=== PATIENT | male | born 1985 | race Caucasian/White ===

== ENCOUNTER 2018-02-12 23:45 | Emergency (ER) | payer OTHER ==
--- NOTE | 2018-02-13 00:01 | Emergency Department Record ---
History of Present Illness - General Chief complaint: Pain Stated complaint: NECK/SHOULDER PAIN Time Seen by Provider: 02/12/18 23:55 Source: Patient Mode of Arrival: Ambulatory Limitations: No limitations - History of Present Illness Initial comments: 32 yo male presents to ED for evaluation of left shoulder and neck pain that began 2 days ago. Patient reports waking up with pain to the affected area, but proceeded to go outdoors and cut wood throughout the day which improved his pain symptoms. Patient reports the area was more painful the following morning (yesterday). Patient denies numbness, tingling, or weakness to the left upper extremity, and denies chest pain or difficulty in breathing. Patient denies health problems at his baseline. MD Complaint: Neck Pain Onset/Timin -: Days(s) Location: Left History of Same: Yes Radiation: Proximal Severity scale (1-10): 4 Quality: Aching Consistency: Constant Improves with: Movement Worsens with: Rest Associated Symptoms: Denies other symptoms - Related Data Previous Rx's Medication Instructions Recorded Diazepam [Valium] 5 mg PO Q8H PRN #9 tab 02/13/18 Allergies Allergy/AdvReac Type Severity Reaction Status Date / Time No Known Drug Allergies Allergy Verified 02/12/18 23:56 Travel Screening - Travel/Exposure Within Last 30 Days Have you traveled within the last 30 days?: No - Travel Symptoms Symptom Screening: None Review of Systems Constitutional: Denies: Chills, Fever, Malaise, Night sweats Eyes: Denies: Eye discharge, Eye pain ENT: Denies: Congestion, Ear pain, Epistaxis Respiratory: Denies: Cough, Dyspnea Cardiovascular: Denies: Chest pain, Dyspnea on exertion Endocrine: Denies: Fatigue, Heat or cold intolerance Gastrointestinal: Denies: Abdominal pain, Nausea, Vomiting Genitourinary: Denies: Incontinence, Retention Musculoskeletal: Reports: Arthralgia. Denies: Back pain, Gout, Joint swelling Skin: Denies: Bruising, Change in color, Change in hair/nails Neurological: Denies: Abnormal gait, Confusion, Headache, Seizure Psychiatric: Denies: Anxiety Hematological/Lymphatic: Denies: Anemia, Blood Clots Physical Exam - General General Appearance: Alert, Oriented x3, Cooperative, Mild distress, Anxious Limitations: No limitations - Head Head exam: Atraumatic, Normocephalic, Normal inspection Head exam detail: negative: Abrasion, Contusion, Hughes's sign, General tenderness, Hematoma, Laceration - Eye Eye exam: Normal appearance. negative: Conjunctival injection, Periorbital swelling, Periorbital tenderness, Scleral icterus - ENT Ear exam: negative: Auricular hematoma, Auricular trauma Nasal Exam: negative: Active bleeding, Discharge, Dried blood, Foreign body Mouth exam: negative: Drooling, Laceration, Tongue elevation - Neck Neck exam: Normal inspection. negative: Meningismus, Tenderness - Respiratory Respiratory exam: Normal lung sounds bilaterally. negative: Rales, Respiratory distress, Rhonchi, Stridor - Cardiovascular Cardiovascular Exam: Regular rate, Normal rhythm, Normal heart sounds - GI/Abdominal GI/Abdominal exam: Soft. negative: Rebound, Rigid, Tenderness - Rectal Rectal exam: Deferred - exam: Deferred - Extremities Extremities exam: Tenderness (TTP along the supraspinatus left, reproducuible on examination), Other (Service Developer strength 5/5, strong distal radial pulse). negative: Calf tenderness, Pedal edema - Back Back exam: Denies: CVA tenderness (R), CVA tenderness (L) - Neurological Neurological exam: Alert, Normal gait, Oriented X3 - Psychiatric Psychiatric exam: Anxious, Normal mood - Skin Skin exam: Normal color. negative: Abrasion Type of lesion: negative: abrasion Course Vital Signs 02/12/18 23:51 Temperature 97.6 F Pulse Rate [ 79 Pulse Ox Probe] Respiratory 20 Rate Blood Pressure 150/125 [Right Arm] Pulse Ox 99 - Reevaluation(s) Reevaluation #1: 02/12/18 23:59 Examination appears reproducible with palpation over the left supra-spinatus muscle History (improves with exertion) and physical examination (reproducible) are c/ w myofascial strain/pain. Patient denies health problems at his baseline, has no cardiac risk factors. Offered the patient EKG here in the ED, patient declined. Patient appears stable for discharge at this time. Disposition Disposition: Discharge Clinical Impression: Myofascial pain Disposition: Home, Self-Care Condition: (2) Stable Instructions: Muscle Strain (ED) Additional Instructions: Return to ED if your symptoms worsen or if you have any concerns. Valium as directed. Follow-up with your family doctor in 3-5 days as directed. Prescriptions: Diazepam [Valium] 5 mg PO Q8H PRN #9 tab PRN Reason: Muscle Spasms Forms: Patient Portal Access Time of Disposition: 00:02 Quality - Quality Measures Quality Measures: N/A - Blood Pressure Screening Does Patient Have Any of the Following: No Blood Pressure Classification: Hypertensive Reading Systolic Measurement: 145 Diastolic Measurement: 99 Screening for High Blood Pressure: < First Hypertensive BP, F/U Documented > [ [id number]] First Hypertensive Follow-up Interventions: Referral to alternative/primary care provider.
== END 2018-02-13 00:12 | disposition home or self-care (01) ==
LOC: ER 23:45
DX: M79.18 Myalgia, other site (principal); M25.512 Pain in left shoulder; M54.2 Cervicalgia
CPT/HCPCS: 99282